=== PATIENT | male | born 1940 | race Caucasian/White ===

== ENCOUNTER → 2021-01-11 13:57 | Outpatient (CLI) | payer MEDICARE, BC, SELFPAY ==
--- NOTE | ~2021-01-11 | XR_ITS ---
XR knee RT 3V, XR knee LT 3V 01/11/2021 14:25 Indication: Osteoarthritis. Knee pain. Procedure: 3 views of each knee Comparison: No prior studies for comparison. Findings: There is mild bilateral symmetric osteoarthritis of the knees. No fracture, subluxation or dislocation. There is anatomic alignment. No significant joint effusion. Impression: 1: Mild bilateral osteoarthritis of the knees. Reviewed, dictated and finalized at location A. Impression: 1: Mild bilateral osteoarthritis of the knees. Impression: 1: Mild bilateral osteoarthritis of the knees.
== END ==
PROVIDERS: PCP Internal Medicine; Visit Provider Internal Medicine
DX: M17.0 Bilateral primary osteoarthritis of knee (principal)
CPT/HCPCS: 73562

== ENCOUNTER → 2021-01-12 16:24 | Outpatient (CLI) | payer MEDICARE, BC, SELFPAY ==
--- NOTE | ~2021-01-12 | XR_ITS ---
EXAMINATION: XR chest 2V EXAM DATE: 01/12/2021 16:35 INDICATION: R06.2 - Wheezing TECHNIQUE: Frontal and lateral projections of the chest obtained and reviewed. Comparison is made to prior examination from 03/29/2015. FINDINGS: Scattered small granulomata. The lungs are otherwise clear. There are no pleural effusion s. The cardiomediastinal silhouette is within normal limits. There is no pneumothorax suspected. T he bones and soft tissues are unremarkable. Mild hyperinflation, chronic. IMPRESSION: No acute cardiopulmonary findings. Reviewed, dictated and finalized at location G.
== END ==
PROVIDERS: Visit Provider Internal Medicine
DX: R06.2 Wheezing (principal)
CPT/HCPCS: 71046

== ENCOUNTER 2024-04-19 12:16 | Outpatient (CLI) | payer MEDICARE, BC, SELFPAY ==
--- NOTE | ~2024-04-19 | XR_ITS ---
EXAMINATION: [id number] DATE: 04/19/2024 12:44 INDICATION: Lateral lower left rib pain post fall TECHNIQUE: A frontal inspiratory view of the chest and 3 views of the left ribs and 3 views of the ri ght ribs were obtained. COMPARISON: Chest radiograph dated 01/12/2021 FINDINGS: Mild displaced fractures of the anterior left 7th and 9th or 10th ribs. No right-sided rib fractures. 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 New blunting at the left costophrenic angle which could represent atelectasis and/or small pleur al effusion. No pneumothorax or right-sided pleural effusion. Cardiomediastinal silhouette is normal. IMPRESSION: 1. . Likely displaced fractures of the anterior left 7th and 9th or 10th ribs. 2. Atelectasis and/or small left pleural effusion at the left costophrenic angle. Reviewed, dictated and finalized at location B. IMPRESSION: 1. . Likely displaced fractures of the anterior left 7th and 9th or 10th ribs. 2. Atelectasis and/or small left pleural effusion at the left costophrenic angl e.
== END 2024-04-19 12:17 ==
PROVIDERS: PCP Nurse Practitioner Family; Visit Provider Nurse Practitioner Family
DX: R07.81 Pleurodynia (principal); R91.8 Other nonspecific abnormal finding of lung field; W19.XXXA Unspecified fall, initial encounter
CPT/HCPCS: 71111